=== PATIENT | female | born 1985 | race Two or more races ===

== ENCOUNTER 2019-03-23 03:03 | Emergency (ER) | payer SELFPAY ==
[~2019-03-23] VITALS: Ht 165.1 cm; Wt 109.0 kg
[2019-03-23 03:06] VITALS: BP 151/91
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
[2019-03-23] MEDS ORDERED: DICL50TA4 PO (03:54)
[2019-03-23] MEDS ORDERED: CYCL10TA2 PO (03:54)
[2019-03-23] MEDS ORDERED: KETOROLAC 60 MG/2 ML VIAL. IM ONE (04:00)
[2019-03-23] MEDS ORDERED: KETOROLAC 60 MG/2 ML VIAL. ONE (04:10)
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
== END 2019-03-23 04:16 | disposition home or self-care (01) ==
LOC: ER 03:03
DX: S40.011A Contusion of right shoulder, initial encounter (principal); V49.9XXA Car occupant (driver) (passenger) injured in unspecified traffic accident, initial encounter; Y93.89 Activity, other specified; Y92.413 State road as the place of occurrence of the external cause; Y99.8 Other external cause status
CPT/HCPCS: 71045; 73030; 81025; 96372; 99284; J1885